=== PATIENT | female | born 1985 | race African-American/Black ===

== ENCOUNTER 2024-05-10 11:04 | Emergency (ER) | payer OTHER, SELFPAY ==
[2024-05-10 11:14] VITALS: BP 155/99
[2024-05-10 12:33] VITALS: BP 109/64
[2024-05-10 13:12] VITALS: BP 107/53; BMI 27.2
--- NOTE | 2024-05-10 13:30 | ED.GENMED ---
History of Present Illness
General
Chief Complaint: Headache
Source: patient
Exam Limitations: none
Time Seen by Provider: 05/10/24 12:36
Nursing documentation reviewed up to this point in time: agreed with
History of Present Illness
History of Present Illness:
Patient is a 39-year-old female with history of portal vein thrombosis currently on Eliquis, hypothyroid presenting to the emergency department for evaluation of headache. Patient is known COVID-positive as of yesterday. Patient reports a constant
headache since April 22. Patient states it is localized to the right side of her head. Patient denies any nausea/vomiting, visual changes, confusion, severe neck pain. Patient denies any dizziness/lightheadedness, ataxia, dysarthria.
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 She tested her self yesterday and was found to be positive. She denies any fevers, chills, body aches, sore throat, chest pain, or shortness of breath
She has been taking Tylenol for headache which temporarily reduces symptoms
Patient reports a history of a portal vein thrombosis a few years ago following COVID infection. She is currently on Eliquis and was recommended to have a head CT from her PCP to rule out intracerebral hemorrhage.
Past History
Past History
ED Past Medical History: Hypothyroidism
ED Past Surgical History: and Other (Thyroidectomy)
Social History
Tobacco: Non-smoker
Alcohol: None
Drug: None
Living: with family
Review of Systems
Review of Systems
Allergies reviewed?: Yes
All Other Systems: ROS reviewed and negative except as documented in HPI and ROS
Phy Exam
Physical Exam
Physical Exam:
Vitals: Patient's vital signs are stable. Afebrile
General: Patient is well appearing, no acute distress. Nontoxic appearing
Skin: Warm and dry, no rashes or lesions
Head: Normocephalic, atraumatic. No tenderness to scalp.
Eyes: Sclera nonicteric. Pupils equal round and reactive light bilaterally. EOMs intact. Visual sheikh intact. No nystagmus.
Throat: No pharyngeal erythema or tonsillar edema/exudates. Uvula midline. Protecting airway
Neck: Normal ROM, no cervical spine tenderness, no meningismus
Cardiac: Regular rate and rhythm, no murmurs.
Pulm: Normal respiratory effort, no wheezes, rales, rhonchi heard on exam.
Abdomen: Abdomen soft. No abdominal tenderness.
Extremities: No evidence of cyanosis or edema. Strength 5 out of 5 in upper and lower extremities. Sensation fully intact
Neuro: AAOx3. CN II-XII intact. No focal neurologic deficits. Steady gait. Fluid speech. No facial droop or asymmetry.
Psychiatric: Normal affect.
Course
Orders/Labs/Results
Orders:
Orders
05/10/24 11:[address] [CT Head W/o Iv Contrast] Urgent
Comment:
Reason For Exam: intractable headache
05/10/24 13:47
0.9% Sodium Chloride 1000 ml [Nss] 1,000 ml IV BOLUS
Diphenhydramine [Benadryl] 25 mg IV NOW STA
Metoclopramide [Reglan] 10 mg IV NOW STA
Test Result ONCE
05/10/24 14:13
Complete Blood Count/With Diff Urgent
Comprehensive Metabolic Panel Urgent
ESR [Erythrocyte Sed Rate] Urgent
HCG, Serum Qualitative Screen Urgent
TSH Reflex To Free T4 Urgent
Abnormal Lab Results
05/10/24
14:13
Plt Count 457 H 10^3/uL
(130-400)
Monocytes % 10.4 H %
(1.7-9.3)
Creatinine 0.5 L mg/dL
(0.6-1.0)
05/10/24 14:13
05/10/24 14:13
Vital Signs
Initial and Last Documented VS:
Initial Vital Signs
Temp Pulse Resp BP Pulse Ox
99.5 F 98 18 155/99 100
05/10/24 11:14 05/10/24 11:14 05/10/24 11:14 05/10/24 11:14 05/10/24 11:14
Last Documented Vital Signs
Temp Pulse Resp BP Pulse Ox
99.5 F 62 16 115/70 100
05/10/24 11:14 05/10/24 16:26 05/10/24 16:26 05/10/24 16:26 05/10/24 16:26
MDM/Problems Addressed
Differential Diagnosis Includes:
Not limited to: Viral illness, acute dehydration, migraine headache, tension headache, occipital neuralgia, spontaneous intraparenchymal hemorrhage, etc.
MDM/Problems Addressed:
39 year old female presenting with headache, known COVID +. No fevers, neck pain, or other neurologic symptoms. Patient stable and afebrile. On exam, patient well appearing, in no apparent distress. Cardio/pulmonary assessment unremarkable. Patient
without any focal neurologic deficits on exam. She has fluid speech and steady gait. Given duration of symptoms and lack of neurologic findings - low suspicion for central process. Symptoms likely secondary to current covid illness although seems
headache was present prior to this infection. Will give IVF and migraine cocktail. Will avoid toradol as pt on eliquis. CT ordered in triage and pending. Will add basic labs and reassess.
Update: CT head without acute findings. Labs including TSH and inflammatory markers negative. Do not suspect temporal arteritis. Doubt embolic process as patient is compliant with Eliquis. On reassessment - patient states headache has improved
completely. Workup in ED negative for acute findings and patients symptoms improved. Feel stable for discharge home with PCP f/u. Strict return precautions discussed. Case reviewed with attending physician.
Chronic conditions affecting care:
History of portal vein thrombosis on Eliquis
Acute Exacerbation and/or Progression of Chronic Illness:
N/A
*Radiology
Radiology exam reviewed: preliminary read by ED provider (Head CT reviewed by me-no acute abnormalities) and radiology read reviewed
*Pulse Oximetry
Patient hypoxic: no
*EKG
Interpreted by ED Provider?: NA
*Press Operator Heavy Duty Interpretation
Rate: Press Operator Heavy Duty- N/A
*Critical Care Note
Total Time (30-74mins, 75-104mins- exclusive of procedures): Not Applicable
ED Attending Note
-
Portions of this chart may have been created with voice recognition software.� Occasional wrong word or��sound alike� substitutions may have occurred due to the inherent limitations of voice recognition software.
Discharge Plan
Departure
Patient Disposition: Home (Routine Discharge)
Date of Disposition: 05/10/24
Time of Disposition: 16:12
Patient with high blood pressure during this ER visit?: Yes
Condition: Good
Covid-19: Confirmed COVID-19
Discharge Problem:
Headache, COVID-19
Instructions: Headache, Adult (DC), COVID-19 in adults - Discharge instructions, BLOOD PRESSURE
Prescriptions:
No Action
levothyroxine 75 MCG tablet
75 mcg PO DAILY
plecanatide [Trulance] 3 MG tablet
3 mg PO HS
thiamine HCl (vitamin B1) 100 MG tablet
100 mg PO DAILY@1200
calcium carbonate 500 MG tablet
500 mg PO DAILY@1200
docosahexaenoic acid-epa 1 CAP capsule
1 cap PO QPM
cholecalciferol (vitamin D3) 1,000 UNITS tablet
1,000 units PO DAILY@1200
multivitamin with folic acid [Tab-A-Rajeev] 1 TABLET tablet
1 tab PO DAILY@1200
vitamin K2 40 MCG tablet
40 mcg PO DAILY@1200
potassium gluconate 600 MG tablet
99 mg PO DAILY@1200
turmeric 400 MG capsule
400 mg PO QPM
Circulation & Vein Support For Healthy Legs
1 cap PO QPM
pantoprazole 40 MG tablet,delayed release (DR/EC)
40 mg PO DAILY Qty: 30 0RF
apixaban [Eliquis DVT-PE Treat 30D Start] 5 MG tablets,dose pack
5 - 10 mg PO DIRECTED Qty: 1 0RF
Referrals:
Yousif Dawkins MD [Family Provider] - Follow up in 2-3 days
Activity Restrictions/Additional Instructions:
RETURN TO THE EMERGENCY DEPARTMENT WITH ANY FEVERS, SEVERE/PERSISTENT HEADACHE, NECK PAIN, CHANGES IN MENTAL STATUS, VISION CHANGES, WORSENING IN CURRENT SYMPTOMS, OR ANY OTHER CONCERNS
-As discussed�your head CT showed no evidence of bleeding or other acute abnormalities. Your lab work was without any abnormal findings.
-It is possible that your symptoms are related to your COVID-19 infection although it is very important you follow-up with your primary care for further evaluation/management of persistent headache if it returns
-It is important stay well-hydrated. Get plenty of rest. Eat a balanced diet. Take Tylenol as needed for headache/body aches.
-Follow-up with your primary care for further evaluation/management
Monitor your symptoms closely and return to the emergency department any acute worsening/new symptoms or any other concerns
Interventions
Interventions:
*Risk Screen - Suicide Last Done: 05/10/24 11:14
*General Assessment Last Done: 05/10/24 11:14
*Neglect/Abuse Screening Last Done: 05/10/24 11:14
ED- Fall Risk Assessment Last Done: 05/10/24 13:15
*ED COVID-19 Vaccine History Last Done: 05/10/24 11:14
*Nursing Disposition Last Done: 05/10/24 16:28
ED- Neurological Assessment Last Done: 05/10/24 13:14
Discharge Date and Time
Discharge Date/Time: 05/10/24 16:34
Print Language: MALDIVIAN
[2024-05-10] MEDS: BENADRYL 25 MG IV (14:11)
[2024-05-10] MEDS: REGLAN 10 MG IV (14:12)
[2024-05-10] MEDS: NSS 1000 IV (14:12)
[2024-05-10 14:16] VITALS: BP 119/85
[2024-05-10 14:29] LABS: % Basophils 0.6 % (0-2); % Eosinophils 2.1 % (0-6); % Immature Granulocytes 0.2 % (0-0.5); % Lymphocytes 36.9 % (20.5-51.1); % Monocytes 10.4 % (1.7-9.3); % Neutrophils 49.8 % (42.2-75.2); Absolute Eosinophils 0.1 10^3/uL (0-0.7); Absolute Lymphocytes 1.9 10^3/uL (1.2-3.4); Absolute Monocytes 0.5 10^3/uL (0.1-0.6); Absolute Neutrophils 2.6 10^3/uL (1.4-6.5); Hematocrit 40.4 % (37.0-47.0); Mean Corp Hgb Conc. 34.7 g/dL (33.0-37.0); Mean Corpuscular Volume 89.6 fL (81.0-99.0); Mean Platelet Volume 9.4 fL (7.4-10.4); Nucleated Red Blood Cells % 0 %; Platelet Count 457 10^3/uL (130-400); Red Blood Cell Count 4.51 10^6/uL (4.20-5.40); Red Cell Dist. Width 13.2 % (11.5-14.5); White Blood Cell Count 5.2 10^3/uL (4.8-10.8)
[2024-05-10 14:44] LABS: ALT (SGPT) 21 U/L (0-35); AST (SGOT) 22 U/L (14-36); Albumin 3.6 g/dl (3.5-5.0); Alkaline Phosphatase 53 U/L (38-126); Blood Urea Nitrogen 17 mg/dl (7-17); Calcium 8.9 mg/dl (8.4-10.2); Carbon Dioxide 25 mmol/L (22-30); Chloride 105 mmol/L (98-107); Estimated Creatinine Clearance 111 ml/min; Glucose 86 mg/dl (70-99); Potassium 4.3 mmol/L (3.5-5.1); Sodium 135 mmol/L (135-145); Total Bilirubin 0.5 mg/dl (0.2-1.3); Total Protein 6.5 g/dl (6.3-8.2); eGFR > 60.00
[2024-05-10 14:47] LABS: HCG, Serum Qualitative Screen Negative
[2024-05-10 15:15] LABS: TSH Reflex To Free T4 0.59 uIU/ml (0.47-4.68)
[2024-05-10 15:47] LABS: Erythrocyte Sed Rate 11 mm/hour (0-20)
[2024-05-10 16:26] VITALS: BP 115/70
== END 2024-05-10 16:34 | disposition home or self-care (01) ==
LOC: EMR 11:04
PROVIDERS: Physician Assistant; EMERGENCY PHYSICIAN Emergency Medicine; FAMILY PHYSICIAN Internal Medicine
DX: R51.9 Headache, unspecified (principal); U07.1 COVID-19; R03.0 Elevated blood-pressure reading, without diagnosis of hypertension; E03.9 Hypothyroidism, unspecified; Z79.01 Long term (current) use of anticoagulants; Z86.718 Personal history of other venous thrombosis and embolism; Z91.018 Allergy to other foods
CPT/HCPCS: 99284; 96374; 96375; 70450; 80053; 84443; 84703; 85025; 85652